=== PATIENT | female | born 1995 | race Hispanic/Latino ===

== ENCOUNTER 2022-05-04 14:54 | Emergency (ER) | payer OTHER ==
[~2022-05-04] VITALS: Ht 160 cm; Wt 73.9 kg
[2022-05-04] MEDS ORDERED: SODIUM CHLORIDE 0.9% 1000ML 1,000 ML ONE (15:18)
[2022-05-04] MEDS ORDERED: SODIUM CHLORIDE 0.9% 1000ML 1,000 ML IV ONE (15:30)
[2022-05-04] MEDS ORDERED: AMOXICILLIN500 MG PO (15:49)
== END 2022-05-04 16:08 | disposition home or self-care (01) ==
LOC: FSED 15:17
DX: J02.0 Streptococcal pharyngitis (principal); U07.1 COVID-19; R42 Dizziness and giddiness; Z33.1 Pregnant state, incidental
CPT/HCPCS: 80048; 81003; 83518; 85025; 99283; J7030; U0002